=== PATIENT | male | born 1960 | race American Indian/Alaskan Native ===

== ENCOUNTER 2016-10-29 13:43 | Outpatient (CLI) | payer MEDICAID ==
--- NOTE | 2016-10-29 15:22 | Magnetic Resonance Report ---
MRI OF THE BRAIN WITHOUT CONTRAST: HISTORY: Malignant neoplasm of right lung PROCEDURE: Multiplanar, multisequence MR imaging of the brain without IV contrast was performed. FINDINGS: The brain parenchyma signal intensity and its barakat white interface are within normal limits on all sequences. No evidence for acute ischemia, hemorrhage or mass. No chronic infarct or extra-axial fluid collection. The midline structures are central. The basal cisterns are patent. Normal ventricular size. The orbital cavities and sella turcica demonstrate no abnormality. The visualized paranasal sinuses and mastoid air cells are well aerated. IMPRESSION: Unremarkable non-enhanced MRI of the brain.
== END 2016-10-29 13:44 | disposition home or self-care (01) ==
LOC: MRI 13:43
PROVIDERS: ATTEND Internal Medicine Hematology & Oncology
DX: C34.11 Malignant neoplasm of upper lobe, right bronchus or lung (principal)
CPT/HCPCS: 70551

== ENCOUNTER 2016-11-09 09:27 | Outpatient (CLI) | payer MEDICAID ==
[2016-11-09 10:09] LABS: Blood Urea Nitrogen 13 mg/dL (9-20)
[2016-11-09] MEDS ORDERED: NACL ONE (11:55)
--- NOTE | 2016-11-09 13:10 | Cat Scan Report ---
CT CHEST, ABDOMEN AND PELVIS WITH CONTRAST INDICATION: Malignant neoplasm upper lobe right bronchus or lung. COMPARISON: 02/24/2016. FINDINGS: Chest, abdomen and pelvis CT performed following oral contrast and intravenous administration of 100 cc of Omnipaque 300. CHEST: Extensive opacity/consolidation has since developed in the right upper lobe, obscuring previously well delineated mass/carcinoma. Largest cavity now measures approximately 6.4 x 4.8 cm, axial series 3, image 71 and approximately 4.7 cm craniocaudal. Numerous additional spiculated densities/infiltrates in more inferior right upper lobe as also in the superior aspect of right lower lobe now identified as on axial images 84-160, series 3 with an index measurement of a peripheral right lower lobe lesion posteriorly approximately 2 x 1.6 cm on axial image 144. Approximately 6 mm right apical calcification again noted, axial image 44. Few peripheral left apical bullae again noted. Remainder lungs otherwise unremarkable. Right upper lobe consolidation somewhat contiguous/extending from the right hilum with approximately 1 cm right suprahilar lymphoid soft tissue, axial image 108, series 3. No other definite significant adenopathy. Somewhat decreased midline AP chest diameter and ventral cardiac flattening again noted. Otherwise unremarkable great vessels. Slight fluid or debris in bilateral mainstem bronchi incidentally now noted as on axial image 108. No effusions. Few atherosclerotic calcifications. Normal heart. New left upper anterior chest port tip extending to the cavoatrial junction. Nonspecific distal esophageal wall thickening, not excluded for gastroesophageal reflux and/or hiatal hernia, amongst others. ABDOMEN: Stable small bilateral renal cortical hypodensities/cyst measuring up to 1 cm on the right superiorly. Otherwise unremarkable liver, spleen, gallbladder, pancreas, adrenals, nonaneurysmal abdominal aorta with atherosclerotic aortoiliac calcifications, IVC and nonobstructive bowel. Mild to moderate colonic stool/possible constipation. No ascites or definite size significant adenopathy. Some interval loss or stranding of intraperitoneal fat. PELVIS: Approximately 2.5 cm urinary bladder diverticulum like appearance posteriorly on the left, axial image 75, series 5 may again be noted. Prostate and seminal vesicles visualization limited, though grossly stable. Few pelvic phleboliths. Rectosigmoid stool. Extensive diffuse subcutaneous edema is new. Stable lumbar degenerative changes, greatest involving L2 and L3 with endplate irregularities/Schmorl's nodes, extensive sclerosis, spurring and severe disc narrowing with vacuum phenomenon. Thoracic dextroscoliosis apex about T9-T10 also again noted. CONCLUSION: 1. Interval change in right lung CT appearance with extensive development of cavitary consolidation in the upper lobe, obscuring previously well delineated right upper lobe bronchogenic carcinoma, as detailed above. Multiple spiculated densities/infiltrates in the remainder right upper lobe and superior aspect of the right lower lobe now identified, not excluded metastatic or inflammatory, though may possibly represent postradiation changes in an appropriate setting. Direct comparison with any interval imaging would also be helpful, if available. 2. Interval left sided chest port placement and development of diffuse subcutaneous edema. 3. Various other stable findings, including COPD, renal hypodensities/cysts, possible constipation and spinal degenerative changes, amongst others, as above. Thank you for the opportunity to participate in this patient's care.
== END 2016-11-09 09:28 | disposition home or self-care (01) ==
LOC: CT 09:27
PROVIDERS: ATTEND Internal Medicine Hematology & Oncology
DX: C34.11 Malignant neoplasm of upper lobe, right bronchus or lung (principal)
CPT/HCPCS: 36415; 71260; 74177; 82565; 84520; Q9967

== ENCOUNTER 2016-12-06 11:32 | Outpatient (CLI) | payer MEDICAID ==
--- NOTE | 2016-12-07 11:33 | PET Report ---
PET/CT:12/06/16 11:32:00 CLINICAL: Lung cancer restaging. RADIOPHARMACEUTICAL: 11.75mCi F18-FDG. COMPARISON: 05/17/16 PET/CT TECHNIQUE- Following intravenous injection of F-18 FDG and an approximately 60 minute uptake period, CT and PET images from the mid skull to the upper thighs were acquired with the patient in the fasted state. No contrast was administered. The CT protocol used for this PET CT study is designed for attenuation correction and anatomic localization of PET abnormalities. This computer technology teacher CT is not desired to produce and cannot replace, bptgr-ca-ple-art diagnostic CT scans with specific imaging protocols for different body parts and indications. Plasma glucose at the time of this test: 86g/dl. The standardized uptake values (SUV) are normalized to patient body weight and indicate the highest activity concentration (SUV max) in a given disease site. FINDINGS: Brain--Physiologic FDG uptake in the visualized regions of the brain. Neck--Physiologic FDG uptake . Chest--Physiologic FDG uptake in mediastinal blood pool and myocardium. Lungs--The previously described right upper lobe lung mass is no longer identified. Post radiation changes in the right upper lobe and new bullous changes in the right apex. Pleura/pericardium--Focal FDG uptake in the right lateral pleura of the right upper lobe this should be 4.6. Thoracic nodes--No abnormal uptake. Hepatobiliary--No abnormal uptake. Liver background SUV mean, as a reference for comparing FDG studies, is 2.2 compared to 2.5 on the last exam. No liver mass. Spleen--No abnormal uptake. Pancreas--No abnormal uptake. Adrenal Glands--No abnormal uptake. Kidneys/Ureters/Bladder--No abnormal uptake. Abdominopelvic Nodes--No abnormal uptake. Bowel/Peritoneum/Mesentery--No abnormal uptake. Pelvic organs--No abnormal uptake. Bones/Soft Tissues--No abnormal uptake. No suspicious bone lesions. IMPRESSION 1. Resolution of right upper lobe lung mass and possibly benign focal FDG uptake in the right lateral pleura of the right upper lobe. 2. No evidence of hepatic, lorelei, adrenal or skeletal metastasis.
== END 2016-12-06 11:33 | disposition home or self-care (01) ==
LOC: PET 11:32
PROVIDERS: ATTEND Internal Medicine Hematology & Oncology
DX: C34.11 Malignant neoplasm of upper lobe, right bronchus or lung (principal); R91.8 Other nonspecific abnormal finding of lung field; Z79.899 Other long term (current) drug therapy
CPT/HCPCS: 78815; 82962; A9552

== ENCOUNTER 2017-02-27 15:10 | Outpatient (CLI) | payer MEDICAID ==
--- NOTE | 2017-02-28 08:43 | Magnetic Resonance Report ---
MRI BRAIN WITHOUT CONTRAST: 02/27/17 15:10:00 CLINICAL: Right lung cancer. COMPARISON: 10/29/16 TECHNIQUE: Axial diffusion, T1, T2, FLAIR, gradient echo T2*, and sagittal T1 sequences on a 1.5 Bessie magnet. FINDINGS: Normal ventricles and sulci. A focus of restricted diffusion in the medial posterior right temporal lobe correlates with an oval smooth 1.5 and 1.6 cm mass which is best imaged on the T2. Moderate adjacent vasogenic edema with minimal mass effect. No hemorrhage or extra-axial collection. No other signal abnormality. Normal pituitary and optic chiasm. The brainstem and cerebellum are normal. Intact vascular flow voids. Normal sinuses. The orbits, and soft tissues are normal. Normal calvarium and skull base. IMPRESSION: 1. A 1.6 cm right temporal lobe metastasis with minimal mass effect and no hemorrhage. 2. No other abnormal findings. I discussed the findings with Dr. Luong on 02/28/17 at 08:20.
== END 2017-02-27 15:11 | disposition home or self-care (01) ==
LOC: MRI 15:10
PROVIDERS: ATTEND Internal Medicine Hematology & Oncology
DX: C79.31 Secondary malignant neoplasm of brain (principal); C34.11 Malignant neoplasm of upper lobe, right bronchus or lung; I10 Essential (primary) hypertension; E78.00 Pure hypercholesterolemia, unspecified; D64.9 Anemia, unspecified; J44.9 Chronic obstructive pulmonary disease, unspecified; Z87.891 Personal history of nicotine dependence
CPT/HCPCS: 70551

== ENCOUNTER 2017-07-09 08:45 | Outpatient (CLI) | payer MEDICAID ==
--- NOTE | 2017-07-10 13:27 | Vascular Lab Report ---
LOWER EXTREMITY VENOUS DUPLEX: REASON FOR EXAM: Swelling of the lower extremities. COMMENTS ON THE RIGHT: All veins visualized are freely compressible without evidence of internal echogenicity. Flow is spontaneous and phasic throughout. COMMENTS ON THE LEFT: All veins visualized are freely compressible without evidence of internal echogenicity. Flow is spontaneous and phasic throughout. IMPRESSION: No evidence of acute or chronic deep venous thrombosis in either lower extremity.
== END 2017-07-09 08:46 | disposition home or self-care (01) ==
LOC: VAS 08:45
PROVIDERS: ATTEND Internal Medicine Hematology & Oncology
DX: M79.662 Pain in left lower leg (principal); M79.661 Pain in right lower leg; M79.89 Other specified soft tissue disorders; C34.11 Malignant neoplasm of upper lobe, right bronchus or lung; R94.8 Abnormal results of function studies of other organs and systems
CPT/HCPCS: 93970

== ENCOUNTER 2017-07-11 10:37 | Outpatient (CLI) | payer MEDICAID ==
[2017-07-11 11:33] LABS: Blood Urea Nitrogen 25 mg/dL (9-20)
--- NOTE | 2017-07-12 08:29 | Magnetic Resonance Report ---
MRI BRAIN WITHOUT AND WITH CONTRAST: 07/11/17 11:00:00 CLINICAL: History of lung cancer and a right brain metastasis. COMPARISON: 02/27/17 TECHNIQUE: Axial diffusion, T1, FLAIR, gradient echo T2*, and coronal and axial T2 and sagittal T1 plus coronal and axial postcontrast T1 sequences on a 1.5 Bessie magnet. 12.0 cc of Multihance was injected intravenously for the contrast portion of the exam. Consent was obtained prior to the administration of contrast. FINDINGS: Normal ventricles and sulci. No restricted diffusion. No mass or enhancing lesion. Focal hypointense signal in the right temporal lobe on the gradient echo sequence correlates with the site of the previously described tumor. However, there is no abnormal signal in this area on other sequences. No hemorrhage, edema or extra-axial collection. Normal pituitary and optic chiasm. The brainstem and cerebellum are normal. Intact vascular flow voids. The orbits, sinuses and soft tissues are normal. Normal calvarium and skull base. IMPRESSION: Resolution of right temporal lobe mass and no new metastases. No acute change.
== END 2017-07-11 10:38 | disposition home or self-care (01) ==
LOC: MRI 10:37
PROVIDERS: ATTEND Internal Medicine Hematology & Oncology
DX: C79.31 Secondary malignant neoplasm of brain (principal); C34.11 Malignant neoplasm of upper lobe, right bronchus or lung; R94.8 Abnormal results of function studies of other organs and systems
CPT/HCPCS: 36415; 70553; 82565; 84520; A9577

== ENCOUNTER 2017-07-11 13:04 | Inpatient (IN) | payer MEDICAID ==
[2017-07-11] MEDS ORDERED: NACL 0.9% 1000 ML 1,000 ML IV ONE (13:18)
[2017-07-11 14:23] LABS: Hematocrit 26.3 % (35.5-45.6); Mean Corpuscular HGB Conc 34 % (32-34); Mean Corpuscular Hemoglobin 35 pg (28-32); Mean Corpuscular Volume 101 fl (84-94); Red Blood Count 2.61 M/mm3 (3.65-5.03); Red Cell Distribution Width 16.2 % (13.2-15.2)
[2017-07-11 14:31] LABS: INR 1.03 (0.87-1.13)
[2017-07-11 14:32] LABS: Partial Thromboplastin Time 26.8 Sec. (24.2-36.6)
[2017-07-11 14:36] LABS: Alanine Aminotransferase 206 units/L (7-56); Albumin 3.2 g/dL (3.9-5); Albumin/Globulin Ratio 1.1 %; Alkaline Phosphatase 124 units/L (35-129); Anion Gap 20 mmol/L; BUN/Creatinine Ratio 50; Blood Urea Nitrogen 25 mg/dL (9-20); Calcium 8.8 mg/dL (8.4-10.2); Carbon Dioxide 26 mmol/L (22-30); Chloride 96.2 mmol/L (98-107); Glucose 117 mg/dL (75-100); Lipase 31 units/L (13-60); Potassium 3.6 mmol/L (3.6-5.0); Sodium 139 mmol/L (137-145); Total Protein 6.1 g/dL (6.3-8.2)
[2017-07-11] MEDS ORDERED: PROTONIX IV ONE (14:58)
[2017-07-11 15:00] LABS: Platelet Count 61 K/mm3 (140-440)
[2017-07-11 15:02] LABS: White Blood Count 1.5 K/mm3 (4.5-11.0)
--- NOTE | 2017-07-11 15:24 | Emergency Department Report ---
HPI - General Chief Complaint: GI Bleed Time Seen by Provider: 07/11/17 14:58 - HPI HPI: Room 18 The patient is a 57-year-old male presenting with chief complaint of hemoptysis. Patient has a history of lung CA and is currently on chemotherapy last receiving it 3 days ago. The patient states he was at the hospital for scheduled appointments when he developed hemoptysis. Patient said hemoptysis was frequent. Patient states she's had chronic shortness of breath intermittently since . Patient is to nausea but denies actual vomiting. Patient denies bright red blood per rectum or melena. Patient denies hematemesis. Patient denies any history of fever Location: Lungs Duration: One day Quality: Hemoptysis Severity:. Moderate Modifying factors: [see above] Context: [see above] Mode of transportation: [not driving] ED Past Medical Hx - Past Medical History Previous Medical History?: No Hx Hypertension: Yes Hx Seizures: Yes (LAST 2002) Additional medical history: high cholesterol,blood transfusion - Surgical History Additional Surgical History: neck fusion - Family History Family history: no significant - Social History Smoking Status: Former Smoker (none since July 2016) Substance Use Type: None (denies illicit drug use) - Medications Home Medications: Home Medications Medication Instructions Recorded Confirmed Last Taken Type AtorvaSTATin 40 mg PO QHS 02/24/16 08/03/16 08/03/16 History HYDROcodone/APAP 5-325 [[place] 1 - 2 each PO Q6HR PRN #14 tablet 02/24/1608/03/16 07:30 Rx 5/325] ED Review of Systems ROS: Stated complaint: COUPHING UP BLOOD WEAK Other details as noted in HPI Constitutional: denies: fever Respiratory: cough, shortness of breath, other (hemoptysis) Cardiovascular: denies: chest pain Gastrointestinal: nausea. denies: vomiting, melena, hematochezia Physical Exam - Physical Exam Vital Signs: Vital Signs 07/11/17 07/11/17 07/11/17 13:13 13:57 14:00 Temperature 98.3 F Pulse Rate 130 H 110 H 107 H Respiratory 24 14 15 Rate Blood Pressure 134/95 141/91 O2 Sat by Pulse 96 96 Oximetry 07/11/17 07/11/17 14:13 14:30 Temperature Pulse Rate 94 H Respiratory 18 15 Rate Blood Pressure 140/99 O2 Sat by Pulse 93 Oximetry Physical Exam: GENERAL: The patient is well-developed well-nourished male lying on stretcher not appearing to be in acute distress. [] HEENT: Normocephalic. Atraumatic. Extraocular motions are intact. Patient has moist mucous membranes. NECK: Supple. Trachea midline CHEST/LUNGS: Clear to auscultation. There is no respiratory distress noted. HEART/CARDIOVASCULAR: Regular. There is no tachycardia. There is no gallop rub or murmur. ABDOMEN: Abdomen is soft, nontender. Patient has normal bowel sounds. There is no abdominal distention. SKIN: There is no rash. There is no edema. There is no diaphoresis. NEURO: The patient is awake, alert, and oriented. The patient is cooperative. The patient has normal speech MUSCULOSKELETAL: There is no evidence of acute injury. ED Course Vital Signs 07/11/17 07/11/17 07/11/17 13:13 13:57 14:00 Temperature 98.3 F Pulse Rate 130 H 110 H 107 H Respiratory 24 14 15 Rate Blood Pressure 134/95 141/91 O2 Sat by Pulse 96 96 Oximetry 07/11/17 07/11/17 14:13 14:30 Temperature Pulse Rate 94 H Respiratory 18 15 Rate Blood Pressure 140/99 O2 Sat by Pulse 93 Oximetry - Consultations Consultation #1: 07/11/17 18:21 Dr Ag martinez 07/11/17 18:[address] Gonzalez. Will have Dr. Luong consult ED Medical Decision Making - Lab Data Result diagrams: 07/11/17 13:23 07/11/17 13:23 Laboratory Tests 07/11/17 07/11/17 07/11/17 13:23 13:23 13:23 WBC 1.5 L* RBC 2.61 L Hgb 9.0 L Hct 26.3 L MCV 101 H MCH 35 H MCHC 34 RDW 16.2 H Plt Count 61 L PT 14.0 INR 1.03 APTT 26.8 Sodium 139 Potassium 3.6 Chloride 96.2 L Carbon Dioxide 26 Anion Gap 20 BUN 25 H Creatinine 0.5 L Estimated GFR > 60 BUN/Creatinine Ratio 50 Glucose 117 H Calcium 8.8 Total Bilirubin 0.80 AST 84 H ALT 206 H Alkaline Phosphatase 124 Total Protein 6.1 L Albumin 3.2 L Albumin/Globulin Ratio 1.1 Lipase 31 Blood Type Antibody Screen 07/11/17 13:23 WBC RBC Hgb Hct MCV MCH MCHC RDW Plt Count PT INR APTT Sodium Potassium Chloride Carbon Dioxide Anion Gap BUN Creatinine Estimated GFR BUN/Creatinine Ratio Glucose Calcium Total Bilirubin AST ALT Alkaline Phosphatase Total Protein Albumin Albumin/Globulin Ratio Lipase Blood Type O POSITIVE Antibody Screen Negative - EKG Data -: EKG Interpreted by Me EKG shows normal: sinus rhythm Rate: normal - EKG Data When compared to previous EKG there are: previous EKG unavailable Interpretation: other (no ischemic changes seen) - Radiology Data Radiology results: report reviewed (CT chest), image reviewed (CT chest) FINAL REPORT PROCEDURE: CT ANGIO CHEST TECHNIQUE: Computerized tomographic angiography of the chest was performed after the IV injection of iodinated nonionic contrast including image processing. The image data was postprocessed using 2-dimensional multiplanar reformatted (MPR) and 3-dimensional (MIP and/or volume rendered) techniques. HISTORY: hemoptysis COMPARISON: 02/24/2016 FINDINGS: Heart and pericardium: Normal. Thoracic aorta: Normal. Pulmonary vasculature: Normal. Lymph nodes: Extensive lymphadenopathy evident. Right infra subclavian adenopathy measuring in the 1.5 centimeter range. Right pretracheal 1.5 centimeters possible consolidative adenopathy in the right suprahilar area 2 centimeter range 1.5-2 centimeters in the right hilar area Lungs/pleural space: Dense consolidative airspace process and or mass in the right upper lobe with cavitary area and with central nodular region measuring 9 millimeters. The consolidation measures in the 11 x 9 centimeter range. There is thickening of the pleura in the right apex. There is contiguity of this process with right suprahilar area with surrounding constriction and encasement of the bronchovascular pedicle.. Diffuse pulmonary emphysema. Patchy fibrotic change left lower lung zone bullous and bleb changes in the upper lung zones and periphery. Slight hazy opacity right lower lung zone. Musculoskeletal structures: Some patchiness of the bones. Inconclusive to exclude metastatic disease. Defer to nuclear medicine bone scan. Upper abdominal structures: No significant abnormality. Heterogeneous appearing liver with probable multiple masses throughout suggesting widespread metastatic disease in the liver. Cystic change upper pole right kidney. IMPRESSION: No evidence of PE seen at this time. Consolidative partially cavitary airspace disease and/or mass process in the right upper lobe with constriction and encasement of the right suprahilar area and right hilar region with metastatic adenopathy and metastatic disease of the liver. Subtotal obstruction 95 to 99 percent about the right main pulmonary artery. Transcribed By: WEP Dictated By: ARIELLE MAGAÑA MD Electronically Authenticated By: ARIELLE MAGAÑA MD Signed Date/Time: 07/11/171318 DD/ 18 TD/TT: 07/11/171318 - Differential Diagnosis lungs CTA, PE, bronchitis Critical care attestation.: If time is entered above; I have spent that time in minutes in the direct care of this critically ill patient, excluding procedure time. ED Disposition Clinical Impression: Hemoptysis, Pancytopenia, Lung cancer, Pulmonary artery abnormality Disposition: OP ADMIT IP TO THIS HOSP Is pt being admited?: Yes Does the pt Need Aspirin: No Condition: Stable Referrals: PRIMARY CARE, [Primary Care Provider] - 3-5 Days Forms: Accompanied Note Time of Disposition: 18:33 (hospitalist paged (Dr Umana))
[2017-07-11] MEDS ORDERED: PROTONIX 80 MG in NACL 0.9% 100 ML IV ONE (16:00)
[2017-07-11 16:12] LABS: Basophils % (Manual) 0 % (0.0-1.8); Blastocytes % (Manual) 0 %; Eosinophils % (Manual) 0 % (0.0-4.3)
[2017-07-11 16:14] LABS: Anisocytosis 2+; Macrocytosis Few; Platelet Estimate Appears Decreased
[2017-07-11 16:15] LABS: Diff Status Complete; Poikilocytosis Few; Target Cells Rare
--- NOTE | 2017-07-11 17:23 | Cat Scan Report ---
FINAL REPORT PROCEDURE: CT ANGIO CHEST TECHNIQUE: Computerized tomographic angiography of the chest was performed after the IV injection of iodinated nonionic contrast including image processing. The image data was postprocessed using 2-dimensional multiplanar reformatted (MPR) and 3-dimensional (MIP and/or volume rendered) techniques. HISTORY: hemoptysis COMPARISON: 02/24/2016 FINDINGS: Heart and pericardium: Normal. Thoracic aorta: Normal. Pulmonary vasculature: Normal. Lymph nodes: Extensive lymphadenopathy evident. Right infra subclavian adenopathy measuring in the 1.5 centimeter range. Right pretracheal 1.5 centimeters possible consolidative adenopathy in the right suprahilar area 2 centimeter range 1.5-2 centimeters in the right hilar area Lungs/pleural space: Dense consolidative airspace process and or mass in the right upper lobe with cavitary area and with central nodular region measuring 9 millimeters. The consolidation measures in the 11 x 9 centimeter range. There is thickening of the pleura in the right apex. There is contiguity of this process with right suprahilar area with surrounding constriction and encasement of the bronchovascular pedicle.. Diffuse pulmonary emphysema. Patchy fibrotic change left lower lung zone bullous and bleb changes in the upper lung zones and periphery. Slight hazy opacity right lower lung zone. Musculoskeletal structures: Some patchiness of the bones. Inconclusive to exclude metastatic disease. Defer to nuclear medicine bone scan. Upper abdominal structures: No significant abnormality. Heterogeneous appearing liver with probable multiple masses throughout suggesting widespread metastatic disease in the liver. Cystic change upper pole right kidney. IMPRESSION: No evidence of PE seen at this time. Consolidative partially cavitary airspace disease and/or mass process in the right upper lobe with constriction and encasement of the right suprahilar area and right hilar region with metastatic adenopathy and metastatic disease of the liver. Subtotal obstruction 95 to 99 percent about the right main pulmonary artery.
[2017-07-11] MEDS ORDERED: NORCO 7.5/325 PO ONE (20:19)
[2017-07-11] MEDS ORDERED: TYLENOL PO PRN (20:36)
[2017-07-11] MEDS ORDERED: PROVENTIL IH PRN (20:36)
[2017-07-11] MEDS ORDERED: ZOFRAN IV PRN (20:36)
--- NOTE | 2017-07-11 20:39 | History and Physical Report ---
History of Present Illness Chief complaint: I feel weak, and im coughing up blood History of present illness: 57 YO Male with Lung Cancer currently undergoing chemotherapy, Seizure Disorder , HLD presents to ED for evaluation. PT states that he has experienced multiple episodes of coughing up blood over the past 3 days, as well as feeling weak and tired, and has shortness of breath. Pt denies fever, chills, palpitations, NVD, BRBPR, recent ill contacts, Syncope, Vertigo, Seizures, trauma, or known exposure to TB. Pt seen and evaluated in ED and found to be be weak, ill appearing and in respiratory distress. Oncology team consulted in ED. Past History Past Medical History: cancer, hypertension Past Surgical History: No surgical history, Other (reviewed) Social history: single Family history: hypertension Medications and Allergies Allergies Allergy/AdvReac Type Severity Reaction Status Date / Time No Known Allergies Allergy Verified 08/02/16 10:27 Home Medications Medication Instructions Recorded Confirmed Last Taken Type AtorvaSTATin 40 mg PO QHS 02/24/16 08/03/16 08/03/16 History HYDROcodone/APAP 5-325 [[place] 1 - 2 each PO Q6HR PRN #14 tablet 02/24/1608/03/16 07:30 Rx 5/325] Active Meds: Active Medications Acetaminophen (Tylenol) 650 mg PO Q4H PRN PRN Reason: Pain MILD(1-3)/Fever >100.5/BOWMAN Albuterol (Proventil) 2.5 mg IH Q4HRT PRN PRN Reason: Shortness Of Breath Miscellaneous Medication (Atorvastatin) 40 mg PO QHS [facility] Morphine Sulfate (Morphine) 2 mg IV Q4H PRN PRN Reason: Pain, Moderate (4-6) Ondansetron HCl (Zofran) 4 mg IV Q8H PRN PRN Reason: N/V unrelieved by Reglan Review of Systems Constitutional: no weight loss, no weight gain, no fever, no chills Ears, nose, mouth and throat: no ear pain, no ear discharge, no tinnitis, no decreased hearing, no nose pain, no nasal congestion Cardiovascular: no chest pain, no orthopnea, no palpitations Respiratory: hemoptysis, shortness of breath, no cough, no cough with sputum Gastrointestinal: no abdominal pain, no nausea, no vomiting, no diarrhea Genitourinary Male: no hematuria, no flank pain, no discharge, no urinary frequency, no urinary hesitancy Rectal: no pain, no incontinence, no bleeding Musculoskeletal: no neck stiffness, no neck pain, no shooting arm pain, no arm numbness/tingling, no low back pain Integumentary: no rash, no pruritis, no redness, no sores, no wounds Neurological: no transient paralysis, no paralysis, no weakness, no parathesias , no numbness, no tingling Psychiatric: no memory loss, no change in sleep habits, no sleep disturbances, no insomnia, no hypersomnia Endocrine: no cold intolerance, no heat intolerance, no polyphagia, no excessive thirst, no polydipsia Hematologic/Lymphatic: no easy bruising, no easy bleeding Allergic/Immunologic: no urticaria, no allergic rhinitis, no wheezing Exam - Constitutional Vitals: Temp Pulse Resp BP Pulse Ox 98.3 F 87 18 140/90 95 07/11/17 13:13 07/11/17 19:00 07/11/17 20:31 07/11/17 19:00 07/11/17 19:00 General appearance: Absent: mild distress - EENT Eyes: Present: PERRL ENT: hearing intact, clear oral mucosa - Neck Neck: Present: supple, normal ROM - Respiratory Respiratory effort: normal Respiratory: bilateral: diminished - Cardiovascular Heart Sounds: Present: S1 & S2. Absent: rub, click - Extremities Extremities: pulses symmetrical, No edema Peripheral Pulses: within normal limits - Abdominal General gastrointestinal: Present: soft, non-tender, non-distended, normal bowel sounds Male genitourinary: Present: normal - Integumentary Integumentary: Present: clear, warm, dry - Musculoskeletal Musculoskeletal: generalized weakness - Psychiatric Psychiatric: appropriate mood/affect, intact judgment & insight - Neurologic Neurologic: CNII-XII intact, moves all extremities Results - Labs CBC & Chem 7: 07/11/17 13:23 07/11/17 13:23 Labs: Abnormal lab results 07/11/17 07/11/17 Range/Units 13:23 13:23 WBC 1.5 L* (4.5-11.0) K/mm3 RBC 2.61 L (3.65-5.03) M/mm3 Hgb 9.0 L (11.8-15.2) gm/dl Hct 26.3 L (35.5-45.6) % MCV 101 H (84-94) fl MCH 35 H (28-32) pg RDW 16.2 H (13.2-15.2) % Plt Count 61 L (140-440) K/mm3 Seg Neuts % (Manual) 78.0 H (40.0-70.0) % Seg Neutrophils # Man 1.2 L (1.8-7.7) K/mm3 Lymphocytes # (Manual) 0.2 L (1.2-5.4) K/mm3 Chloride 96.2 L (98-107) mmol/L BUN 25 H (9-20) mg/dL Creatinine 0.5 L (0.8-1.5) mg/dL Glucose 117 H (75-100) mg/dL AST 84 H (5-40) units/L ALT 206 H (7-56) units/L Total Protein 6.1 L (6.3-8.2) g/dL Albumin 3.2 L (3.9-5) g/dL Assessment and Plan - Patient Problems (1) Acute respiratory failure Current Visit: Yes Status: Acute Plan to address problem: Supplemental oxygen, nebs, aspiration precautions, oncology consult, Will consider pulmonary consult if continued or worsening hemoptysis. (2) Seizure disorder Current Visit: Yes Status: Acute Plan to address problem: Continue current therapy, neuro checks (3) Hemoptysis Current Visit: Yes Status: Acute Plan to address problem: Continue current care, oncology consulted. (4) Lung cancer Current Visit: Yes Status: Acute Plan to address problem: Oncology consulted, pain control. (5) DVT prophylaxis Current Visit: Yes Status: Acute
[2017-07-11] MEDS ORDERED: NON-FORMULARY (Atorvastatin 40 MG) PO SCH (22:00)
[2017-07-11] MEDS: MAGIC MOUTHWASH PO SCH (22:01)
[2017-07-12] MEDS: MORPHINE IV PRN (06:13)
[2017-07-12] MEDS: NORCO 5/325 PO PRN ×2 (07:49→21:14)
[2017-07-12] MEDS: MAGIC MOUTHWASH PO SCH ×3 (09:19→21:35)
[2017-07-12 09:26] LABS: Hematocrit 24.7 % (35.5-45.6); Hemoglobin 8.4 gm/dl (11.8-15.2); Mean Corpuscular HGB Conc 34 % (32-34); Mean Corpuscular Hemoglobin 34 pg (28-32); Mean Corpuscular Volume 101 fl (84-94); Red Blood Count 2.46 M/mm3 (3.65-5.03)
[2017-07-12 09:32] LABS: Platelet Count 57 K/mm3 (140-440)
[2017-07-12 09:47] LABS: Anion Gap 19 mmol/L; BUN/Creatinine Ratio 50; Blood Urea Nitrogen 20 mg/dL (9-20); Calcium 8.6 mg/dL (8.4-10.2); Carbon Dioxide 27 mmol/L (22-30); Chloride 94.2 mmol/L (98-107); Glucose 88 mg/dL (75-100); Potassium 3.2 mmol/L (3.6-5.0); Sodium 137 mmol/L (137-145)
--- NOTE | 2017-07-12 09:51 | Hem/Onc Progress Note ---
Assessment and Plan Patient has pancytopenia from chemotherapy. We will start him on Neupogen. We' ll closely monitor counts. We will also discuss with radiation to see if he can get further radiation to the chest once his counts improved. Subjective Date of service: 07/12/17 Interval history: Patient known to me. History of small cell lung cancer. He is on chemotherapy once a week. Presented with hemoptysis. He also has evidence of brain metastases status post radiation. Objective - Constitutional Vitals: Last Vital Signs Temp 99.2 F 07/12/17 07:30 Pulse 92 H 07/12/17 07:30 Resp 18 07/12/17 07:49 BP 119/83 07/12/17 07:30 Pulse Ox 93 07/12/17 07:30 Pain Intensity (0-10): denies any pain General appearance: mild distress Performance status: 2- selfcare, ambulatory - Neck Neck: supple - Respiratory Respiratory effort: Positive: normal Respiratory: bilateral: diminished - Cardiovascular Rhythm: regular - Gastrointestinal General gastrointestinal: Present: soft - Labs Lab Results: Laboratory Results - last 24 hr 07/11/17 07/11/17 07/11/17 13:23 13:23 13:23 WBC 1.5 L* RBC 2.61 L Hgb 9.0 L Hct 26.3 L MCV 101 H MCH 35 H MCHC 34 RDW 16.2 H Plt Count 61 L Add Manual Diff Complete Total Counted 50 Seg Neuts % (Manual) 78.0 H Band Neutrophils % 0 Lymphocytes % (Manual) 16.0 Reactive Lymphs % (Man) 0 Monocytes % (Manual) 6.0 Eosinophils % (Manual) 0 Basophils % (Manual) 0 Metamyelocytes % 0 Myelocytes % 0 Promyelocytes % 0 Blast Cells % 0 Nucleated RBC % Not Reportable Seg Neutrophils # Man 1.2 L Band Neutrophils # 0.0 Lymphocytes # (Manual) 0.2 L Abs React Lymphs (Man) 0.0 Monocytes # (Manual) 0.1 Eosinophils # (Manual) 0.0 Basophils # (Manual) 0.0 Metamyelocytes # 0.0 Myelocytes # 0.0 Promyelocytes # 0.0 Blast Cells # 0.0 WBC Morphology Not Reportable Hypersegmented Neuts Not Reportable Hyposegmented Neuts Not Reportable Hypogranular Neuts Not Reportable Smudge Cells Not Reportable Toxic Granulation Not Reportable Toxic Vacuolation Not Reportable Dohle Bodies Not Reportable Pelger-Huet Anomaly Not Reportable Samuel Rods Not Reportable Platelet Estimate Appears decreased Clumped Platelets Not Reportable Plt Clumps, EDTA Not Reportable Large Platelets Not Reportable Giant Platelets Not Reportable Platelet Satelliting Not Reportable Plt Morphology Comment Not Reportable RBC Morphology Not Reportable Dimorphic RBCs Not Reportable Polychromasia Not Reportable Hypochromasia Not Reportable Poikilocytosis Few Anisocytosis 2+ Microcytosis Not Reportable Macrocytosis Few Spherocytes Not Reportable Pappenheimer Bodies Not Reportable Sickle Cells Not Reportable Target Cells Rare Tear Drop Cells Not Reportable Ovalocytes Not Reportable Helmet Cells Not Reportable Garg-[place]kn[place] Bodies Not Reportable [place] Rings Not Reportable [place] Cells Not Reportable Bite Cells Not Reportable Crenated Cell Not Reportable Elliptocytes Not Reportable Acanthocytes (Spur) Not Reportable Rouleaux Not Reportable Hemoglobin C Crystals Not Reportable Schistocytes Not Reportable Malaria parasites Not Reportable Iftikhar Bodies Not Reportable Hem Pathologist Commnt No PT 14.0 INR 1.03 APTT 26.8 Sodium 139 Potassium 3.6 Chloride 96.2 L Carbon Dioxide 26 Anion Gap 20 BUN 25 H Creatinine 0.5 L Estimated GFR > 60 BUN/Creatinine Ratio 50 Glucose 117 H Calcium 8.8 Total Bilirubin 0.80 AST 84 H ALT 206 H Alkaline Phosphatase 124 Total Protein 6.1 L Albumin 3.2 L Albumin/Globulin Ratio 1.1 Lipase 31 Blood Type Antibody Screen 07/11/17 07/12/17 07/12/17 13:23 08:53 08:58 WBC 1.0 L* RBC 2.46 L Hgb 8.4 L Hct 24.7 L MCV 101 H MCH 34 H MCHC 34 RDW 16.0 H Plt Count 57 L Add Manual Diff Total Counted Seg Neuts % (Manual) Band Neutrophils % Lymphocytes % (Manual) Reactive Lymphs % (Man) Monocytes % (Manual) Eosinophils % (Manual) Basophils % (Manual) Metamyelocytes % Myelocytes % Promyelocytes % Blast Cells % Nucleated RBC % Seg Neutrophils # Man Band Neutrophils # Lymphocytes # (Manual) Abs React Lymphs (Man) Monocytes # (Manual) Eosinophils # (Manual) Basophils # (Manual) Metamyelocytes # Myelocytes # Promyelocytes # Blast Cells # WBC Morphology Hypersegmented Neuts Hyposegmented Neuts Hypogranular Neuts Smudge Cells Toxic Granulation Toxic Vacuolation Dohle Bodies Pelger-Huet Anomaly Samuel Rods Platelet Estimate Clumped Platelets Plt Clumps, EDTA Large Platelets Giant Platelets Platelet Satelliting Plt Morphology Comment RBC Morphology Dimorphic RBCs Polychromasia Hypochromasia Poikilocytosis Anisocytosis Microcytosis Macrocytosis Spherocytes Pappenheimer Bodies Sickle Cells Target Cells Tear Drop Cells Ovalocytes Helmet Cells Garg-Belknap Bodies [place] Rings Chastity Cells Bite Cells Crenated Cell Elliptocytes Acanthocytes (Spur) Rouleaux Hemoglobin C Crystals Schistocytes Malaria parasites Iftikhar Bodies Hem Pathologist Commnt PT INR APTT Sodium 137 Potassium 3.2 L Chloride 94.2 L Carbon Dioxide 27 Anion Gap 19 BUN 20 Creatinine 0.4 L Estimated GFR > 60 BUN/Creatinine Ratio 50 Glucose 88 Calcium 8.6 Total Bilirubin AST ALT Alkaline Phosphatase Total Protein Albumin Albumin/Globulin Ratio Lipase Blood Type O POSITIVE Antibody Screen Negative
[2017-07-12 10:39] LABS: Anisocytosis 2+; Basophils % (Manual) 0 % (0.0-1.8); Blastocytes % (Manual) 0 %; Eosinophils % (Manual) 0 % (0.0-4.3); Macrocytosis Few
[2017-07-12 10:40] LABS: Diff Status Complete; Hypochromasia Few
[2017-07-12] MEDS: GRANIX SUB-Q SCH (14:02)
[2017-07-12] MEDS ORDERED: K-DUR PO ONE ×2 (14:10→21:00)
--- NOTE | 2017-07-12 14:13 | Progress Note ---
Assessment and Plan Assessment and plan: Leukopenia secondary to chemotherapy lung cancer - hematology oncology was consulted - Neupogen is ordered, will follow CBC Patient has metastasis to the brain CTA showed blockage of 90-95% of the right pulmonary artery - Hem/ONC considering radiation therapy after WBC improved Hemoptysis - Subsided now Mild anemia - H&H stable DVT prophylaxis - SCDs because of hemoptysis Disposition - Continue inpatient care History Interval history: Patient was seen and evaluated this morning, hemoptysis subsided, no dizziness. Hospitalist Physical - Physical exam Narrative exam: Not in cardiopulmonary distress. The patient appeared well nourished and normally developed. Vital signs as documented. Head exam is unremarkable. No scleral icterus . Neck is without jugular venous distension, thyromegaly, or carotid bruits. Lungs are clear to auscultation. Cardiac exam reveals regular rate and Rhythm. First and second heart sounds normal. No murmurs, rubs or gallops. Abdominal exam reveals normal bowel sounds, no masses, no organomegaly and no aortic enlargement. Extremities are nonedematous and both femoral and pedal pulses are normal. 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 No focal weakness. - Constitutional Vitals: Temp Pulse Resp BP Pulse Ox 99.5 F 98 H 18 112/73 91 07/12/17 11:56 07/12/17 11:56 07/12/17 11:56 07/12/17 11:56 07/12/17 11:56 General appearance: Absent: mild distress Results - Labs CBC & Chem 7: 07/12/17 08:58 07/12/17 08:53 Labs: Laboratory Last Values WBC 1.0 K/mm3 (4.5-11.0) L* 07/12/17 08:58 RBC 2.46 M/mm3 (3.65-5.03) L 07/12/17 08:58 Hgb 8.4 gm/dl (11.8-15.2) L 07/12/17 08:58 Hct 24.7 % (35.5-45.6) L 07/12/17 08:58 MCV 101 fl (84-94) H 07/12/17 08:58 MCH 34 pg (28-32) H 07/12/17 08:58 MCHC 34 % (32-34) 07/12/17 08:58 RDW 16.0 % (13.2-15.2) H 07/12/17 08:58 Plt Count 57 K/mm3 (140-440) L 07/12/17 08:58 Add Manual Diff Complete 07/12/17 08:58 Total Counted 100 07/12/17 08:58 Seg Neuts % (Manual) 66.0 % (40.0-70.0) 07/12/17 08:58 Band Neutrophils % 6.0 % 07/12/17 08:58 Lymphocytes % (Manual) 21.0 % (13.4-35.0) 07/12/17 08:58 Reactive Lymphs % (Man) 0 % 07/12/17 08:58 Monocytes % (Manual) 7.0 % (0.0-7.3) 07/12/17 08:58 Eosinophils % (Manual) 0 % (0.0-4.3) 07/12/17 08:58 Basophils % (Manual) 0 % (0.0-1.8) 07/12/17 08:58 Metamyelocytes % 0 % 07/12/17 08:58 Myelocytes % 0 % 07/12/17 08:58 Promyelocytes % 0 % 07/12/17 08:58 Blast Cells % 0 % 07/12/17 08:58 Nucleated RBC % Not Reportable 07/12/17 08:58 Seg Neutrophils # Man 0.7 K/mm3 (1.8-7.7) L 07/12/17 08:58 Band Neutrophils # 0.1 K/mm3 07/12/17 08:58 Lymphocytes # (Manual) 0.2 K/mm3 (1.2-5.4) L 07/12/17 08:58 Abs React Lymphs (Man) 0.0 K/mm3 07/12/17 08:58 Monocytes # (Manual) 0.1 K/mm3 (0.0-0.8) 07/12/17 08:58 Eosinophils # (Manual) 0.0 K/mm3 (0.0-0.4) 07/12/17 08:58 Basophils # (Manual) 0.0 K/mm3 (0.0-0.1) 07/12/17 08:58 Metamyelocytes # 0.0 K/mm3 07/12/17 08:58 Myelocytes # 0.0 K/mm3 07/12/17 08:58 Promyelocytes # 0.0 K/mm3 07/12/17 08:58 Blast Cells # 0.0 K/mm3 07/12/17 08:58 WBC Morphology Not Reportable 07/12/17 08:58 Hypersegmented Neuts Not Reportable 07/12/17 08:58 Hyposegmented Neuts Not Reportable 07/12/17 08:58 Hypogranular Neuts Not Reportable 07/12/17 08:58 Smudge Cells Not Reportable 07/12/17 08:58 Toxic Granulation Not Reportable 07/12/17 08:58 Toxic Vacuolation Not Reportable 07/12/17 08:58 Dohle Bodies Not Reportable 07/12/17 08:58 Pelger-Huet Anomaly Not Reportable 07/12/17 08:58 Samuel Rods Not Reportable 07/12/17 08:58 Platelet Estimate Not Reportable 07/12/17 08:58 Clumped Platelets Not Reportable 07/12/17 08:58 Plt Clumps, EDTA Not Reportable 07/12/17 08:58 Large Platelets Not Reportable 07/12/17 08:58 Giant Platelets Not Reportable 07/12/17 08:58 Platelet Satelliting Not Reportable 07/12/17 08:58 Plt Morphology Comment Not Reportable 07/12/17 08:58 RBC Morphology Not Reportable 07/12/17 08:58 Dimorphic RBCs Not Reportable 07/12/17 08:58 Polychromasia Not Reportable 07/12/17 08:58 Hypochromasia Few 07/12/17 08:58 Poikilocytosis Not Reportable 07/12/17 08:58 Anisocytosis 2+ 07/12/17 08:58 Microcytosis Not Reportable 07/12/17 08:58 Macrocytosis Few 07/12/17 08:58 Spherocytes Not Reportable 07/12/17 08:58 Pappenheimer Bodies Not Reportable 07/12/17 08:58 Sickle Cells Not Reportable 07/12/17 08:58 Target Cells Not Reportable 07/12/17 08:58 Tear Drop Cells Not Reportable 07/12/17 08:58 Ovalocytes Not Reportable 07/12/17 08:58 Helmet Cells Not Reportable 07/12/17 08:58 Garg-[place] Bodies Not Reportable 07/12/17 08:58 [place] Rings Not Reportable 07/12/17 08:58 [place] Cells Not Reportable 07/12/17 08:58 Bite Cells Not Reportable 07/12/17 08:58 Crenated Cell Not Reportable 07/12/17 08:58 Elliptocytes Not Reportable 07/12/17 08:58 Acanthocytes (Spur) Not Reportable 07/12/17 08:58 Rouleaux Not Reportable 07/12/17 08:58 Hemoglobin C Crystals Not Reportable 07/12/17 08:58 Schistocytes Not Reportable 07/12/17 08:58 Malaria parasites Not Reportable 07/12/17 08:58 Iftikhar Bodies Not Reportable 07/12/17 08:58 Hem Pathologist Commnt No 07/12/17 08:58 PT 14.0 Sec. (12.2-14.9) 07/11/17 13:23 INR 1.03 (0.87-1.13) 07/11/17 13:23 APTT 26.8 Sec. (24.2-36.6) 07/11/17 13:23 Sodium 137 mmol/L (137-145) 07/12/17 08:53 Potassium 3.2 mmol/L (3.6-5.0) L 07/12/17 08:53 Chloride 94.2 mmol/L (98-107) L 07/12/17 08:53 Carbon Dioxide 27 mmol/L (22-30) 07/12/17 08:53 Anion Gap 19 mmol/L 07/12/17 08:53 BUN 20 mg/dL (9-20) 07/12/17 08:53 Creatinine 0.4 mg/dL (0.8-1.5) L 07/12/17 08:53 Estimated GFR > 60 ml/min 07/12/17 08:53 BUN/Creatinine Ratio 50 % 07/12/17 08:53 Glucose 88 mg/dL (75-100) 07/12/17 08:53 Calcium 8.6 mg/dL (8.4-10.2) 07/12/17 08:53 Total Bilirubin 0.80 mg/dL (0.1-1.2) 07/11/17 13:23 AST 84 units/L (5-40) H 07/11/17 13:23 ALT 206 units/L (7-56) H 07/11/17 13:23 Alkaline Phosphatase 124 units/L (35-129) 07/11/17 13:23 Total Protein 6.1 g/dL (6.3-8.2) L 07/11/17 13:23 Albumin 3.2 g/dL (3.9-5) L 07/11/17 13:23 Albumin/Globulin Ratio 1.1 % 07/11/17 13:23 Lipase 31 units/L (13-60) 07/11/17 13:23 Blood Type O POSITIVE 07/11/17 13:23 Antibody Screen Negative 07/11/17 13:23 Leukopenia
[2017-07-12] MEDS: COLACE PO SCH (21:14)
[2017-07-13] MEDS: MORPHINE IV PRN (03:52)
[2017-07-13 07:09] LABS: Hematocrit 23.2 % (35.5-45.6); Mean Corpuscular HGB Conc 34 % (32-34); Mean Corpuscular Hemoglobin 34 pg (28-32); Mean Corpuscular Volume 100 fl (84-94); Red Blood Count 2.33 M/mm3 (3.65-5.03); Red Cell Distribution Width 16.2 % (13.2-15.2)
[2017-07-13 07:28] LABS: Anion Gap 16 mmol/L; BUN/Creatinine Ratio 43; Blood Urea Nitrogen 17 mg/dL (9-20); Calcium 8.4 mg/dL (8.4-10.2); Carbon Dioxide 28 mmol/L (22-30); Chloride 97.7 mmol/L (98-107); Glucose 139 mg/dL (75-100); Sodium 139 mmol/L (137-145)
[2017-07-13 07:33] LABS: Platelet Count 54 K/mm3 (140-440)
[2017-07-13 07:37] LABS: White Blood Count 1.9 K/mm3 (4.5-11.0)
[2017-07-13] MEDS ORDERED: K-DUR PO ONE (08:12)
[2017-07-13] MEDS ORDERED: NORCO 7.5/325 PO PRN (08:43)
[2017-07-13 08:49] LABS: Anisocytosis 2+; Basophils % (Manual) 0 % (0.0-1.8); Blastocytes % (Manual) 0 %; Diff Status Complete; Hypochromasia Few; Macrocytosis Few; Platelet Estimate Consistent w Auto
[2017-07-13] MEDS: NORVASC PO SCH ×2 (09:00→14:54)
[2017-07-13] MEDS ORDERED: LASIX PO SCH (10:00)
[2017-07-13] MEDS ORDERED: NON-FORMULARY (Valacyclovir Hcl [Valtrex] 1,000 MG) PO SCH (10:00)
[2017-07-13] MEDS ORDERED: VALTREX PO SCH (10:00)
[2017-07-13] MEDS: GRANIX SUB-Q SCH (11:11)
[2017-07-13] MEDS: COLACE PO SCH (11:14)
[2017-07-13] MEDS ORDERED: MAGIC MOUTHWASH PO SCH (11:30)
--- NOTE | 2017-07-13 12:39 | Discharge Summary ---
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 Consolidative partially cavitary airspace disease and/or mass process is a right upper lobe with constriction and encasement of the right suprahilar and right hilar region with metastatic adenopathy and metastatic disease of the liver. Subtotal obstruction 95-99% about the right main pulmonary artery. Hospital course: 57 YO Male with Lung Cancer currently undergoing chemotherapy, Seizure Disorder , HLD presents to ED for evaluation. PT states that he has experienced multiple episodes of coughing up blood over the past 3 days, as well as feeling weak and tired, and has shortness of breath. Pt denies fever, chills, palpitations, NVD, BRBPR, recent ill contacts, Syncope, Vertigo, Seizures, trauma, or known exposure to TB. Pt seen and evaluated in ED and found to be be weak, ill appearing and in respiratory distress. Oncology team consulted in ED. Patient was admitted to the floor and H&H was stable, hemoptysis stopped, hematology oncology consulted and he started him on granix and his WBC count increased from 1-1.9. I have discussed with hematology oncology and they recommended to discharge him after he get a dose of granix to have follow-up appointment with his hematology oncologist, Dr. Luong on Saturday. Patient was hemodynamically stable, no fever no chills and discharged home in a stable condition. Patient is advised to continue his home medications. Patient's questions and concerns were addressed at the bedside. Patient is advised to return to ER if you develop fever, recurrent hemoptysis. Disposition: - TO HOME OR SELFCARE Time spent for discharge: 31 minutes - Discharge Diagnoses (1) Acute respiratory failure Status: Acute (2) Hemoptysis Status: Acute (3) Lung cancer Status: Chronic Comment: With metastases to the brain (4) Pancytopenia Status: Acute (5) Pulmonary artery abnormality Status: Acute (6) Seizure disorder Status: Acute Core Measure Documentation - Palliative Care Palliative Care/ Comfort Measures: Not Applicable - Core Measures Any of the following diagnoses?: none Exam - Physical Exam Narrative exam: Not in cardiopulmonary distress. The patient appeared well nourished and normally developed. Vital signs as documented. Head exam is unremarkable. No scleral icterus . Neck is without jugular venous distension, thyromegaly, or carotid bruits. Lungs are clear to auscultation. Cardiac exam reveals regular rate and Rhythm. First and second heart sounds normal. No murmurs, rubs or gallops. Abdominal exam reveals normal bowel sounds, no masses, no organomegaly and no aortic enlargement. Extremities are nonedematous and both femoral and pedal pulses are normal. 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 No focal weakness. - Constitutional Vitals: Temp Pulse Resp BP Pulse Ox 99.0 F 113 H 20 118/81 91 07/13/17 08:03 07/13/17 08:03 07/13/17 08:03 07/13/17 08:03 07/13/17 08:03 Plan Activity: no restrictions Weight Bearing Status: Full Weight Bearing Diet: low salt Follow up with: PRIMARY CARE, [Primary Care Provider] - 3-5 Days Forms: Accompanied Note Prescriptions: Nystas/Diphen/Xyl Visc/Mylanta [Magic Mouthwash] 15 ml PO AC #1 bottle
[2017-07-13 16:41] VITALS: BP 142/71
== END 2017-07-13 15:20 | disposition home health service (06) | DRG 180 ==
LOC: ED 13:04 → 3A 20:36 → UNDODISIN 07-13 15:20
PROVIDERS: ADMIT Internal Medicine; ATTEND Internal Medicine
DX: C34.90 Malignant neoplasm of unspecified part of unspecified bronchus or lung (principal); J96.00 Acute respiratory failure, unspecified whether with hypoxia or hypercapnia; D61.810 Antineoplastic chemotherapy induced pancytopenia; G40.909 Epilepsy, unspecified, not intractable, without status epilepticus; C79.31 Secondary malignant neoplasm of brain; E78.00 Pure hypercholesterolemia, unspecified; Z87.891 Personal history of nicotine dependence; I10 Essential (primary) hypertension; Z82.49 Family history of ischemic heart disease and other diseases of the circulatory system
CPT/HCPCS: 36415; 70553; 71275; 80048; 80053; 82565; 83690; 84520; 85007; 85025; 85610; 85730; 86850; 86900; 86901; 93005; 93010; 93970; A9270-GY; A9577; C9113; J1447; J2270; Q9967